=== PATIENT | female | born 1955 | race Caucasian/White ===

== ENCOUNTER 2023-10-12 20:42 | Emergency (ER) | payer BC, SELFPAY ==
[2023-10-12 20:45] VITALS: BP 125/81; PULSE 82; RESP 16; TEMP 36.4; O2SAT 95; BMI 27.4
--- NOTE | 2023-10-12 20:58 | ED_ITS ---
HPI - Eye Problem General Time Seen by Provider: 20:58 Date Seen: 10/12/23 Chief complaint: Eye Problems Stated complaint: garden stake through left eye Time Seen by Provider: 10/12/23 20:58 Source: patient, RN notes reviewed and old records reviewed Mode of arrival: ambulatory Limitations: no limitations History of Present Illness HPI Narrative: 68-year-old female who comes in today with eye injury after poking herself with a garden stake. No vision changes, she was wearing glasses at the time. The eye itself does not hurt but she does have a laceration of the eyelid. Related Data Home Medications ?Medication ?Instructions ?Recorded ?Confirmed albuterol sulfate 90 mcg/actuation g inhalation 11/18/21 02/25/23 aerosol inhaler bupropion HCl 300 mg 24 hr tablet, ea PO 11/18/21 02/25/23 extended release estradiol 10 mcg vaginal tablet tab vaginal 11/18/21 02/25/23 lisinopril 10 mg tablet 10 mg PO QDAY 11/18/21 10/12/23 omeprazole 20 mg capsule,delayed 20 mg PO QDAY 11/18/21 10/12/23 release simvastatin 40 mg tablet 40 mg PO QDAY 11/18/21 10/12/23 cranberry 400 mg capsule 400 mg PO QDAY 01/15/22 10/12/23 glucosamine 500 mg-msm 100 mg-vit cap PO 01/15/22 02/25/23 C 20 qt-zacrm-dloz-primrose capsule (Joint Support Complex) lactobacillus combination no.4 3 3,000 mmu cells PO QDAY 01/15/22 10/12/23 billion cell capsule (Probiotic) multivitamin (Multiple Vitamins 1 tab PO QDAY 01/15/22 10/12/23 tablet) Allergies Allergy/AdvReac Type Severity Reaction Status Date / Time Sulfa (Sulfonamide Allergy Intermediate Rash Verified 02/25/23 16:49 Antibiotics) PFSH [facility] Medical History Laceration Head injury ?S09.90XA - Unspecified injury of head, initial encounter (ICD-10) Hand pain, left ?M79.642 - Pain in left hand (ICD-10) Surgical History History of tonsillectomy ?Z90.89 - Acquired absence of other organs (ICD-10) Previous section ?Z98.891 - History of uterine scar from previous surgery (ICD-10) History of appendectomy ?Z90.49 - Acquired absence of other specified parts of digestive tract (ICD- 10) Social History Smoking Status: Never smoker Do you use any of these nicotine containing products: E-Cigarettes Second hand tobacco smoke exposure: No Exam Narrative: Exam Narrative: General: well nourished , NAD Head: Atraumatic and normocephalic ENT: External ears and external nose are normal Eyes: Conjunctiva clear, pupils are equal reactive, external ocular motions are intact. The left upper eyelid has a medial 3 mm full-thickness laceration with edges well opposed. There is no erythema or redness of the conjunctiva adjacent to this and on eyelid eversion, no laceration on the orbital side of the eyelid. No fluorescein uptake Neck: Full spontaneous range of motion of the neck Lungs: No respiratory distress Musculoskeletal: No tenderness or deformity Neurologic: No gross focal neurologic deficits Skin: No rashes Psych: Mood and affect are appropriate Const: Vital Signs, click to edit/add: Vital Signs - 24 hr 10/12/23 20:45 Temperature 97.6 F Pulse Rate [Pulse Oximeter] 82 Respiratory Rate 16 Blood Pressure [Ri ght Upper Arm] 125/81 Pulse Oximetry 95 Oxygen Delivery Me thod Room Air Course Course ED Course: Patient seen examined, presents today with left eyelid injury. She has a full- thickness laceration of the left eyelid that is not through and through, on fluorescein exam no underlying orbital injury, open globe, or corneal abrasion. Discussed wound care for this, would not sutures the edges are close together and there is no gap when patient closes her eyes. Eye patch will be placed and discussed wound care. Vital Signs Vital signs: Initial Vital Signs Temperature 97.6 F 10/12/23 20:45 Temperature Source Temporal Artery Scan 10/12/23 20:45 Pulse Rate 82 10/12/23 20:45 Respiratory Rate 16 10/12/23 20:45 Blood Pressure 125/81 10/12/23 20:45 Blood Pressure Mean 95 10/12/23 20:45 Blood Pressure Position Sitting 0812/24 20:45 Pulse Oximetry 95 10/12/23 20:45 Oxygen Delivery Method Room Air 10/12/23 20:45 Vital Signs Temperature 97.6 F 10/12/23 20:45 Pulse Rate 82 10/12/23 20:45 Respiratory Rate 16 10/12/23 20:45 Blood Pressure 125/81 10/12/23 20:45 Pulse Oximetry 95 10/12/23 20:45 Oxygen Delivery Method Room Air 10/12/23 20:45 Temperature 97.6 F 10/12/23 20:45 Pulse Rate 82 10/12/23 20:45 Respiratory Rate 16 10/12/23 20:45 Blood Pressure 125/81 10/12/23 20:45 Pulse Oximetry 95 10/12/23 20:45 Oxygen Delivery Method Room Air 10/12/23 20:45 Discharge Plan Discharge Clinical Impression: Eyelid laceration, left Patient Disposition: Home, Self-Care Condition: Stable Instructions: Laceration Without Closure (ED) Additional Instructions: Wear eye patch for the next 24 hours. Apply antibiotic ointment daily. You may run water over the laceration, otherwise do not need to specifically clean this. Activity Level: No Restrictions Prescriptions: No Action estradiol 10 mcg tablet vaginal omeprazole 20 mg capsule,delayed release(DR/EC) 20 mg PO QDAY bupropion HCl 300 mg tablet extended release 24 hr PO Patient Comments: TAKE ONE TABLET BY MOUTH DAILY lisinopril 10 mg tablet 10 mg PO QDAY simvastatin 40 mg tablet 40 mg PO QDAY Patient Comments: TAKE ONE TABLET BY MOUTH AT BEDTIME albuterol sulfate 90 mcg/actuation HFA aerosol inhaler inhalation Patient Comments: INHALE 1-2 PUFFS BY MOUTH EVERY 4 HOURS IF NEEDED FOR SHORTNESS OF BREATH. 1ST CHOICE multivitamin [Multiple Vitamins] Tablet 1 tab PO QDAY Joint Support Complex [id number] mg capsule PO cranberry 400 mg capsule 400 mg PO QDAY Rx Instructions: administer with a meal Probiotic 3 billion cell capsule 3,000 mmu cells PO QDAY Rx Instructions: administer with a meal Follow Up/Referrals: Constance Fish PA-C [Primary Care Provider] - Stand Alone Forms: MyHealth Info Instructions
--- OUTSIDE RECORDS SUMMARY | 2023-10-12 21:20 | XMS_ITS | Clinical Summary ---
Author Organization [facility] Address [place], [place] [address] Care Team Providers Care Manager Digital Ad Operations Name Role Phone Pcp, No Primary Care Provider Unavailabl e Allergies Active Allergy Reactions Criticality Noted Date Comments Sulfamethoxazole Hives 12/10/2015 Medications Medication Sig Dispensed Refills Start Date End Date Status melatonin 3 mg tablet 3-5 mg for sleep 0 07/19/2013 Active Cranberry 400 mg capsuleIndications:F requent UTI Take by mouth. 0 12/18/2016 Active multivit/folic acid/vit K1 (ONE-A-DAY WOMEN'S 50 PLUS ORAL) Take by mouth. Active buPROPion (WELLBUTRIN XL) 300 mg Extended-Release tabletIndications:De pression with anxiety Take 1 Tablet (300 mg) by mouth once daily. 100 Tablet 3 05/14/2023 Active clobetasol 0.05% (TEMOVATE 0.05% OINTMENT) 0.05 % ointmentIndications: Lichen sclerosus et atrophicus Apply to affected skin at bedtime 1-2 times weekly for maintenance 60 g 2 05/14/2023 Active lisinopriL (PRINIVIL; ZESTRIL) 10 mg tabletIndications:Hy pertension, unspecified type Take 1 Tablet (10 mg) by mouth once daily. 100 Tablet 3 05/14/2023 Active nitrofurantoin macrocrystals/monohy drate (MACROBID) 100 mg capsuleIndications:R ecurrent UTI Take 1 pill after intercourse 30 Capsule 2 05/14/2023 Active omeprazole (PRILOSEC) 20 mg Delayed-Release capsuleIndications:G astric reflux TAKE 1 CAPSULE BY MOUTH EVERY DAY 100 Capsule 3 05/14/2023 Active simvastatin (ZOCOR) 40 mg tabletIndications:Hy perlipidemia, unspecified hyperlipidemia type Take 1 Tablet (40 mg) by mouth at bedtime. 100 Tablet 3 05/14/2023 Active Vagifem 10 mcg tab vaginal tabletIndications:Po st-menopausal atrophic vaginitis INSERT 1 TABLET (10 MCG) INTO THE VAGINA AT BEDTIME. ONCE WEEKLY 8 Tablet 12 05/14/2023 Active calcium carbonate-vitamin D3, 600 mg-400 unit, 600 mg-10 mcg (400 unit) tabletIndications:Os teopenia of neck of right femur Take 1 Tablet by mouth two times daily with meals. 200 Tablet 3 05/27/2023 Active Active Problems Problem Noted Date Diagnosed Date Recurrent UTI 11/15/2018 Routine adult health maintenance 01/15/2017 Overview: Colonoscopy 12/2016 diverticulosis repeat in 10 years HTN (hypertension) 12/07/2014 Depression with anxiety 12/07/2014 Hiatal hernia 07/03/2014 Overview: see EGD 05/2014 Fatty liver 04/17/2014 Obesity 11/01/2013 GERD (gastroesophageal reflux disease) 4 Overview: EGD 06/09/14- reflux esophagitis Hyperlipidemia 03/05/2009 Resolved Problems Problem Noted Date Diagnosed Date Resolved Date Anemia, unspecified 11/09/2006 10/23/19 12 Overview: Already had studies to investigate Depressive disorder, not elsewhere classified 02/12/20 06 12/07/2014 Alopecia, unspecified 02/11/20062011 Unspecified essential hypertension 02/06/2006 12/07/2014 Immunizations Name Administration Dates Next Due COVID-19 Vaccine Spikevax (M oderna 50mcg/0.5mL) 12YO+ [id number] Formula PF 01/07/2023 Hepatitis A (Adult) 09/14/2012,09/01/2011 Hepatitis B (Adult) 03/02/1994 Influenza Virus, Unspecified 11/24/2014 Influenza, IIV3 (Age >=3 years) 12/01/19 10,12/18/2008,01/06/2007,1998,11/30/1997 Influenza, IIV4 12/17/2021,,11/16/2019,2018 Influenza, Inactivated AIIV4 (Age 65+ Years) Preserv Free 01/07/2023 MMR 08/22/1998 Pneumococcal Conj 20-valent (Prevnar 20) 01/07/2023 Td (Age >=7 Years) 02/15/2018,08/16/1996 Tdap 11/09/2006 Zoster (Shingrix-RZV, recombinant) 05/16/2019, Family History Medical History Relation Name Comments Cancer-prostate Father Other Father Depression, D-f ib Diabetes Maternal Grandfather Hypertension Mother Thyroid Disease Mother Cancer-colon Paternal Aunt Hypertension Sister 1 Cancer-colon Sister 2 ? polyps, pre-c ancer cells Other Sister 2 polyps in colon Cancer-breast No Family History Relation Name Status Comments Brother 1 Alive Brother 2 Alive Father Alive Maternal Grandfather Mother Alive Paternal Aunt Sister 1 Alive Sister 2 Alive Social History Tobacco Use Types Packs/Day Years Used Date Smoking Tobacco: Former Cigarettes 0.3 20 0 11/03/1992 - 11/03/2012 Smokeless Tobacco: Never Tobacco Cessation:Counseling Given: Yes Alcohol Use Standard Drinks/Week Comments Not Currently 0 (1 standard drink = 0.6 oz pur e alcohol) PHQ-2 Answer Date Recorded PHQ-2 TOTAL SCORE 0 05/14/2023 Social Connections Answer Date Recorded Frequency of Communication with Friends and Fami ly 0 05/14/2023 Financial Resource Strain Answer Date R ecorded Difficulty of Paying Living Expenses 3 05/14/2023 Difficulty of Paying Living Expenses Not on file 05/14/2023 Food Insecurity Answer Date Recorded Worried About Running Out of Food in the Last Ye ar 1 05/14/2023 Transportation Needs Answer Date Record ed Lack of Transportation (Medical) 1 05/14/2023 Housing Stability Answer Date Recorded Unable to Pay for Housing in the Last Year 1 05/14/2023 Sex and Gender Information Value Date Recorded Sex Assigned at Not on file Gender Identity Not on file Sexual Orientation Not on file Obstetrics History Last Filed Vital Signs Vital Sign Reading Time Taken Comments Blood Pressure 108/71 05/14/2023 8:20 AM CDT Pulse 64 05/14/2023 8:20 AM CDT Temperature 36.8 ??C (98.2 ??F) 08/18/2021 2:07 PM CD T Respiratory Rate 18 08/18/2021 2:07 PM CDT Oxygen Saturation 97% 05/14/2023 8:20 AM CDT Inhaled Oxygen Concentration - - Weight 81.6 kg (179 lb 12.8 oz) 05/14/2023 8:20 AM CDT Height 170.1 cm (5' 6.97) 05/14/2023 8:20 AM CD T Body Mass Index 28.19 05/14/2023 8:20 AM CDT Plan of Treatment Health Maintenance Due Date Last Done Comments COVID-19 vaccine series ( season) 2023 01/07/2023, 03/06/2022, 01/21/2021, Additional history exists Influenza for age 65+ 11/01/2023 01/07/2023 , 12/17/2021, 12/13/2020, Additional history exists BMI (ht and wt on same day) for age 18+ 05/13/2024 05/14/2023, 05/09/2022, 04/24/2021, Additional history exists Depression screening for age 12+ 05/13/2024 05/14/2023, 05/09/2022, 04/24/2021, Additional history exists Mammogram for age 45-75 05/13/2024 05/14/19, 05/09/2022, 04/19/2021, Additional history exists Colonoscopy through age 75 01/15/202701/15, 01/15/2017, 01/15/2017, Additional history exists Tetanus booster 02/16/2028 02/15/2018, 10/31, 08/16/1996 Lipids for age 45-75 05/13/2028 05/14/2023, 05/09/2022, 04/24/2021, Additional history exists Tdap Completed 11/09/2006 Hepatitis C screening for ag e 18-79 Completed 03/22/2019 Zoster (shingles) series for age 50+ Completed 05/16/2019, 03/22/2019 Pneumococcal series for age 65+ Completed DEXA/DXA scan for age 65+ Completed 05/20/2023, Procedures Procedure Name Priority Date/Time Associated Diagnosis Comments XR DXA BONE DENSITY 2 SITES AXIAL Routine 05/20/2023 10:10 AM CDT Postmenopausal XR MAMMO SAADIA BILAT SCREEN Routine 05/14/2023 9:41 AM CDT Routine check-up LIPID PANEL W REFLEX MEASURED LDL Routine 05/14/2023 9:14 AM CDT Hyperlipidemia, unspecified hyperlipidemia type ANTI HCV Routine 03/22/2019 8:51 AM ELECTRONIC TECH Need for hepatitis C screening test COLONOSCOPY 01/15/2017 9:46 AM ELECTRONIC TECH from Last 3 Months or Most Recently Relevant to Health Maintenance Results * (ABNORMAL) XR DXA BONE DENSITY 2 SITES AXIAL [34057.1] (05/20/2023 10:10 AM CDT) Anatomical Region Laterality Modality Spine, HIPS, HIPL, HIPR Other Impressions 05/22/2023 4:12 PM CDT Osteopenia. RECOMMENDATIONS: The National Osteoporosis Foundation recommends pharmacologic treatment for patients with T-scores of -2.5 or less, patients with prior history of fragility fractures, or patients with 10-year probability of greater than 3% at hips or greater than 20% of suffering major osteoporotic fractures. Recommend continued optimization of calcium and vitamin D intake through dietary means and/or supplementation and regular exercise. Repeat scan recommended in 3-5 years. Nivia Lockwood PA-C [facility] 05/22/2023 ?? Narrative 05/22/2023 4:12 PM CDT For Patients: Results are automatically released to your [facility] ([employer]) account once available, in compliance with federal regulations. This means that you may see your results before your provider has had a chance to review them. Please allow 2-3 business days for your provider to comment on the results. XR DXA Bone Mineral Density (BMD) EXAM LOCATION: [address] [address] PATIENT NAME: Yadira Luna DATE OF : 1955 EXAM DATE: 05/20/2023 REQUESTING PROVIDER: Janice Guevara MD GENDER AT : female HEIGHT: 5' 6.97 (05/14/2023) WEIGHT: ??179 lb 12.8 oz (05/14/2023) MENOPAUSAL STATUS: Postmenopausal RACE/ETHNICITY: White RISK FACTORS: Height Loss (2 inches or more), Smoking (prior), Steroid Medication (non-topical), and White Race CURRENT MEDICATION FOR BONE LOSS: NONE INDICATION: Post-Menopause COMPARISON DATE(S): 2017 DXA scans are compared to prior studies for a patient only when the two (or more) studies were performed on the same scanner. It is not possible to compare data generated on one scanner to data from another because there are not standards in DXA equipment. This applies even if the two scanners are made by the same motor checker. PROCEDURE: Dual-energy x-ray absorptiometry performed with routine technique. Reporting is completed in the form of a T-score. The T-score represents the standard deviation from peak bone mass based on young healthy adult. A Z-score is used for diagnosis in premenopausal women, and for men under the age of 50. FINDINGS: RESULT LUMBAR SPINE L1-L3 (L4) ??BMD: 1.065 g/cm2 T-Score: - 1.0 Z-Score: + 0.1 Change from prior in 2017: ??Increase 0.9%. RESULTS FEMUR Left femoral neck BMD: 0.896 g/cm2 T-Score: - 1.0 Z-Score: - 0.1 Change from prior in 2017: ??Decrease 8.3%. Right femoral neck BMD: 0.877 g/cm2 T-Score: - 1.2 Z-Score: + 0.0 Change from prior in 2017: ??Decrease 6.3%. Left hip BMD: 0.984 g/cm2 T-Score: - 0.9 Z-Score: - 0.1 Change from prior in 2017: ??Decrease 14.3%. Right hip BMD: 0.918 g/cm2 T-Score: - 0.7 Z-Score: + 0.1 Change from prior in 2017: ??Decrease 11.3%. WHO criteria: Normal: T-score at or above -1 SD Osteopenia: T-score between -1.1 and -2.4 SD Osteoporosis: T-score at or below -2.5 SD FRAX RISK CALCULATION (USED FOR OSTEOPENIA ONLY): 10-year probability of major osteoporotic fracture: 13.2%. 10-year probability of hip fracture: 1.3%. Janice Guevara MD DEXA * XR MAMMO SAADIA BILAT SCREEN (05/14/2023 9:41 AM CDT) Anatomical Region Laterality Modality BREASTS, Breast Left, Breast Right Bilateral Mammography Impressions 05/14/2023 2:11 PM CDT ??There is no radiographic evidence for malignancy. ??Recommend annual mammograms. MAMMOGRAM ASSESSMENT: ??ACR 1 Negative PATIENTS: You will also receive a letter with your examination results in an easy to read format. ??If you have questions about your results, please contact your referring provider. Narrative 05/14/2023 2:11 PM CDT For Patients: As a result of the Century Cures Act, medical imaging exams and procedure reports are released immediately into your electronic medical record. You may view this report before your referring provider. If you have questions, please contact your health care provider. XR MAMMO SAADIA BILAT SCREEN [[id number]] CLINICAL HISTORY: ??This is an asymptomatic 67 y.o. patient. INDICATION FOR EXAM: Mammogram Screening. TECHNIQUE: CC & MLO views were obtained. ??This study was evaluated with the assistance of Computer-Aided Detection. Breast Tomosynthesis was used in interpretation. COMPARISON FILM: Yes 05/09/22 [facility] 04/19/21 [facility] FINDINGS: ??The breasts have scattered areas of fibroglandular density. There are no dominant masses, suspicious micro calcifications or areas of architectural distortion. Janice Guevara MD MAMMO * LIPID PANEL W REFLEX MEASURED LDL (05/14/2023 9:14 AM CDT) CHOLESTEROL,TOTAL 183 100 - 199 mg/dL 05/14/2023 4:43 PM CDT [facility] Comment: Cholesterol, Total Reference Ranges Desirable <200 mg/dL Borderline 200-239 mg/dL High >=240 mg/dL TRIGLYCERIDES 72 <150 mg/dL 05/14/2023 4:43 PM CDT [facility] HDL CHOLESTEROL 70 >40 mg/dL 4:43 PM CDT [facility] NON-HDL CHOLESTEROL 113 <145 mg/dl 05/14/2023 4:43 PM CDT [facility] CHOL/HDL RATIO 2.61 <4.50 05/14/2023 4:43 PM CDT [facility] LDL CHOLESTEROL 99 <=130 mg/dL 05/14/2023 4:43 PM CDT [facility] VLDL CHOLESTEROL 14 <=30 mg/dL 05/14/2023 4:43 PM CDT [facility] PROVIDER ORDERED STATUS RANDOM 05/14/2023 4:43 PM T [facility] Blood BLOOD SPECIMEN / Unknown Venipuncture / Unknown 05/14/2023 9:14 AM CDT 05/14/2023 9:14 AM CDT Janice Guevara MD CHEMISTRY [facility] [address] [place] [address], [place] * ANTI HCV (03/22/2019 8:51 AM ELECTRONIC TECH) HEPATITIS C ANTIBODY Non-React thanh Non-React thanh 03/22/2019 2:09 PM ELECTRONIC TECH [facility] Comment:Antibodies to HCV no t detected; does not exclude the possibility of exposure to HCV. Blood BLOOD SPECIMEN / Unknown Venipuncture / Unknown 03/22/2019 8:51 AM ELECTRONIC TECH 03/22/2019 8:51 AM ELECTRONIC TECH Zeynep Terrell MD SEND OUTS [facility] [address] [place] [address], [place] * COLONOSCOPY (01/15/2017 9:46 AM ELECTRONIC TECH) 01/15/2017 9:46 AM ELECTRONIC TECH Narrative Transcriptions Celestino Mohan MD - 01/15/2017 10:11 AM CST Patient Name: Yadira Luna Procedure Date: 01/15/2017 Gender: Female Date of : 1955 Admit Type: Outpatient Procedure: Colonoscopy Proceduralist: Celestino Mohan MD , Alyce Rosenthal (Nurse) Indications/Pre-Op Diagnosis: Screening for colorectal malignant neoplasm, Last colonoscopy: November 2006 Medications: Fentanyl 100 micrograms IV, Midazolam 4 mgIV, The level of sedation administered wasmoderate Procedure Description: The patient had risks, benefits and alternatives explained to andgave informed consent. The patient had a stable cardiopulmonary status and judged an adequate candidate for conscious sedation. The Colon CF-[id number] was passed through the anus and advancedto the cecum, identified by appendiceal orifice and ileocecal valve. The colonoscopy was performed without difficulty. The patient toleratedthe procedure well. The quality of the bowel preparation was good. The ileocecal valve, appendiceal orifice, and rectum were photographed. Complications: No immediate complications. Estimated Blood Loss & Specimen: Estimated blood loss: none. Specimen collected - None Findings: The perianal and digital rectal examinations were normal. A few small-mouthed diverticula were found in the sigmoid colon. The exam was otherwise without abnormality on direct and retroflexion views. Impressions/Post-Op Diagnosis: - Diverticulosis in the sigmoid colon. - The examination was otherwise normal on direct and retroflexionviews. - No specimens collected. Recommendation: - Patient has a contact number available for emergencies. The signsand symptoms of potential delayed complications were discussed with the patient. Return to normal activities tomorrow. Written discharge instructions were provided to the patient. - Resume previous diet. - Continue present medications. - Repeat colonoscopy in 10 years for screening purposes. Moderate Sedation: Moderate (conscious) sedation was administered by the endoscopy nurse and supervised by the endoscopist. The following parameters were monitored: oxygen saturation, heart rate, respiratory rate, blood pressure, adequacy of pulmonary ventilation and reponse to care. [facility] and nursing notes for moderate sedation details. Total physician intraservice time was 19 minutes. Celestino Mohan MD 01/15/2017 10:11:12 AM This report has been signed electronically. Note Initiated On: 01/15/2017 9:46 AM Procedure Code(s): --- Professional --- 09504, Colonoscopy, flexible; diagnostic, including collection of specimen(s) bybrushing or washing, when performed (separateprocedure) Diagnosis Code(s): --- Professional --- Z12.11, Encounter for screening formalignant neoplasm of colon K57.30, Diverticulosis of large intestine without perforation or abscess withoutbleeding CPT copyright 2016 [employer] [place] [employer]. All rights reserved. The codes documented in this report are preliminary and upon health promoter reviewmay be revised to meet current compliance requirements. Scope In: 9:50:35 AM Scope Withdrawal Time 0 hours 8 minutes 10 seconds Scope Out: 10:07:35 AM Celestino Mohan MD PROCEDURE ORD from Last 3 Months or Most Recently Relevant to Health Maintenance Care Teams Manager Digital Ad Operations Relationship Specialty Start Date End Date Pcp, No . PCP - General 09/12/22
== END 2023-10-12 21:31 | disposition home or self-care (01) ==
PROVIDERS: Emergency Provider Family Medicine; PCP Physician Assistant Surgical
DX: S01.112A Laceration without foreign body of left eyelid and periocular area, initial encounter (principal); W20.8XXA Other cause of strike by thrown, projected or falling object, initial encounter; Z75.3 Unavailability and inaccessibility of health-care facilities; Z72.0 Tobacco use
CPT/HCPCS: 99282; 99283